=== PATIENT | female | born 1985 | race Caucasian/White ===

== ENCOUNTER 2019-04-11 13:24 | Inpatient (IN) | payer MEDICAID ==
[2019-04-11 18:50] LABS: ADD MAN DIFF? NO
[2019-04-11 18:51] LABS: BASOPHILS % 0.3 % (0.0-2.0); EOSINOPHILS # 0.1 10^3/ul (0.0-0.5); HEMATOCRIT 38.3 % (37.0-47.0); HEMOGLOBIN 12.6 g/dl (12.0-16.0); LYMPHOCYTES # 1.4 10^3/ul (0.8-2.9); LYMPHOCYTES % 18.1 % (15.0-51.0); MEAN CORPUSCULAR HEMOGLOBIN 29.4 pg (29.0-33.0); MEAN CORPUSCULAR HGB CONC 32.9 g/dl (32.0-37.0); MEAN CORPUSCULAR VOLUME 89.5 fl (82.0-101.0); MEAN PLATELET VOLUME 9.8 fl (7.4-10.4); MONOCYTE # 0.6 10^3/ul (0.3-0.9); MONOCYTES % 7.9 % (0.0-11.0); NEUTROPHIL # 5.5 10^3/ul (1.6-7.5); PLATELET COUNT 250 10^3/UL (140-415); RED BLOOD COUNT 4.28 10^6/ul (4.20-5.40); RED CELL DISTRIBUTION WIDTH 14.5 % (11.5-14.5)
[2019-04-11 18:51] LABS: WHITE BLOOD COUNT 7.7 10^3/ul (4.8-10.8)
[2019-04-11 18:55] LABS: INR 0.91; PROTIME 12.4 Sec (11.9-14.9)
[2019-04-11 18:56] LABS: PARTIAL THROMBOPLASTIN TIME 28.9 Sec (23.0-35.0)
[2019-04-11] MEDS ORDERED: METHYLERGONOVINE 0.2 MG INJ IM ×2 (19:00)
[2019-04-11] MEDS ORDERED: CARBOPROST 250 MCG INJ IM ×2 (19:00)
[2019-04-11] MEDS ORDERED: MISOPROSTOL 200 MCG TAB PR ×3 (19:00→21:30)
[2019-04-11] MEDS ORDERED: OXYTOCIN 30 UNITS/LR 500 ML IV ×2 (19:00)
[2019-04-11] MEDS: LACTATED RINGER'S 1,000 ML IV (19:04)
[2019-04-11 19:31] LABS: HEPATITIS B SURFACE ANTIGEN NEGATIVE (NEGATIVE)
[2019-04-11] MEDS ORDERED: NALOXONE (0.4 MG/ML) INJ IV (20:00)
[2019-04-11] MEDS ORDERED: ALBUTEROL 0.083% (NEB) 2.5 MG/3 ML AMP HHN (20:00)
[2019-04-11] MEDS ORDERED: HYDROmorphONE 0.5 MG/0.5 ML SYG IV ×2 (20:00)
[2019-04-11] MEDS ORDERED: METOCLOPRAMIDE 10 MG INJ IV (20:00)
[2019-04-11] MEDS ORDERED: FENTAnyl 50 MCG/ML VIAL IV ×3 (20:00)
[2019-04-11] MEDS ORDERED: HYDROmorphONE 1 MG/5 ML IV SYRINGE IV ×3 (20:00)
[2019-04-11] MEDS ORDERED: DIPHENHYDRAMINE 50 MG INJ IV ×2 (20:00)
[2019-04-11] MEDS ORDERED: ONDANSETRON 4 MG INJ IV ×2 (20:00)
[2019-04-11] MEDS: ONDANSETRON 4 MG INJ IV (20:07)
[2019-04-11] MEDS: CITRIC ACID/NA CITRATE 30 ML CUP PO (20:07)
[2019-04-11] MEDS: METOCLOPRAMIDE 10 MG INJ IV (20:07)
[2019-04-11] MEDS ORDERED: PHENYLephrine (100 MCG/ML) 10ML SYG (20:18)
[2019-04-11] MEDS ORDERED: OXYTOCIN 30 UNITS/LR 500 ML BAG IV (20:18)
[2019-04-11] MEDS ORDERED: morphine SULFATE/PF (10 MG/10 ML) INJ (20:18)
[2019-04-11] MEDS ORDERED: LANOLIN HPA 1 PKT TOP (21:30)
[2019-04-11] MEDS ORDERED: NA PHOSPHATE/BIPHOS 133 ML ENEMA PR (21:30)
[2019-04-11] MEDS: CEFAZOLIN 2 GM/50 ML (PMX) 50 ML IVPB (22:07)
[2019-04-11] MEDS: OXYTOCIN 30 UNITS/LR 500 ML IV (22:10)
[2019-04-11] MEDS: KETOROLAC 30 MG INJ IV (22:14)
[2019-04-12] MEDS: LACTATED RINGER'S 1,000 ML IV ×3 (02:45→11:04)
[2019-04-12 05:09] LABS: ADD MAN DIFF? NO
[2019-04-12 05:16] LABS: WHITE BLOOD COUNT 10.1 10^3/ul (4.8-10.8)
[2019-04-12 05:16] LABS: BASOPHILS % 0.3 % (0.0-2.0); EOSINOPHILS # 0.1 10^3/ul (0.0-0.5); EOSINOPHILS % 0.5 % (0.0-7.0); HEMATOCRIT 36.5 % (37.0-47.0); HEMOGLOBIN 12.1 g/dl (12.0-16.0); LYMPHOCYTES # 1.6 10^3/ul (0.8-2.9); MEAN CORPUSCULAR HEMOGLOBIN 29.9 pg (29.0-33.0); MEAN CORPUSCULAR HGB CONC 33.2 g/dl (32.0-37.0); MEAN CORPUSCULAR VOLUME 90.1 fl (82.0-101.0); MONOCYTE # 0.7 10^3/ul (0.3-0.9); MONOCYTES % 6.8 % (0.0-11.0); NEUTROPHIL # 7.7 10^3/ul (1.6-7.5); NEUTROPHILS % 75.8 % (39.0-77.0); PLATELET COUNT 228 10^3/UL (140-415); RED BLOOD COUNT 4.05 10^6/ul (4.20-5.40); RED CELL DISTRIBUTION WIDTH 14.1 % (11.5-14.5)
[2019-04-12] MEDS: SENNA/DOCUSATE NA (8.6MG/50MG) TAB PO ×2 (09:26→21:24)
[2019-04-12] MEDS: KETOROLAC 30 MG INJ IV ×2 (09:36→15:27)
[2019-04-12 15:08] LABS: RAPID PLASMA REAGIN NONREACTIVE (NR)
[2019-04-12] MEDS: OXYCODONE/ACETAMINOPHEN (5/325) TAB PO (22:03)
[2019-04-12] MEDS: IBUPROFEN 600 MG TAB PO (23:44)
[2019-04-13] MEDS: OXYCODONE/ACETAMINOPHEN (5/325) TAB PO ×2 (03:20→21:07)
[2019-04-13] MEDS: IBUPROFEN 600 MG TAB PO ×3 (05:37→17:34)
[2019-04-13] MEDS: SENNA/DOCUSATE NA (8.6MG/50MG) TAB PO ×2 (09:49→21:00)
[2019-04-13] MEDS: BISACODYL 10 MG SUPP PR (17:35)
[2019-04-13] MEDS: DOCUSATE SODIUM 100 MG CAP PO (21:00)
[2019-04-14] MEDS: IBUPROFEN 600 MG TAB PO ×3 (00:44→11:51)
[2019-04-14] MEDS: SENNA/DOCUSATE NA (8.6MG/50MG) TAB PO (09:00)
[2019-04-14] MEDS: DOCUSATE SODIUM 100 MG CAP PO (09:00)
[2019-04-14] MEDS: MEASLES,MUMPS,RUBELLA VACCINE INJ SC* (09:00)
[2019-04-14] MEDS: DIPHTH/TET/ACEL PERTUSS (ADULT) 0.5 ML VIAL IM* (10:15)
== END 2019-04-14 15:35 | disposition home or self-care (01) | DRG 788 ==
LOC: OBT 13:24 → L-D 13:25 → OBT 18:30 → L-D 18:30 → MS1 23:52
PROVIDERS: Specialist
PROC: 10D00Z1 Extraction of Products of Conception, Low, Open Approach (ICD-10-PCS; principal; 2019-04-11 20:15)
DX: O34.211 Maternal care for low transverse scar from previous cesarean delivery (principal); Z3A.37 37 weeks gestation of pregnancy; Z37.0 Single live birth
CPT/HCPCS: 36415; 85025; 85610; 85730; 86592; 86850; 86900; 86901; 87340; 90715; 96360; 99464